=== PATIENT | female | born 1935 | race Caucasian/White ===

== ENCOUNTER → 2020-09-24 | Outpatient (CLI) | payer MEDICARE ==
--- NOTE | 2020-09-24 19:03 | REP ---
INDICATION: ESSENTIAL (PRIMARY) HYPERTENSION. COMPARISON: No comparison study. TECHNIQUE: Two views.. FINDINGS: The lungs are well inflated and free of infiltrate. The pleural angles are sharp. The heart size is normal. Pulmonary vasculature is not increased. No significant bony abnormality is seen. The thoracic aorta is tortuous. IMPRESSION: No active disease.. <Electronically signed by Pool Smith > 09/24/20 [id number]
== END ==
LOC: M RAD 17:20
PROVIDERS: ATTEND Internal Medicine Cardiovascular Disease
DX: I10 Essential (primary) hypertension (principal)

== ENCOUNTER → 2023-10-13 | Outpatient (CLI) | payer MEDICARE ==
[~2023-10-13] MED LIST: CITA10TA7 PO; ISOVUE-370 76% 100ML VIAL As Ordered ONE; LATA0.0015 OU; LEVO50TA5 PO; LEVO75TA4 PO; LISI2.5T9 PO; ROPI1TAB73 PO; TIZA4CAP6 PO
== END ==
LOC: M RAD 09:24
PROVIDERS: ATTEND Registered Nurse
DX: M16.11 Unilateral primary osteoarthritis, right hip (principal)
CPT/HCPCS: 73502; Q9967

== ENCOUNTER → 2024-06-07 | Outpatient (CLI) | payer MEDICARE ==
[~2024-06-07] MED LIST changes: +FAMO1TAB11; -ISOVUE-370 76% 100ML VIAL As Ordered ONE; +QUET1TAB17; +TIZA4CAP3 PO; -TIZA4CAP6 PO
[2024-06-07 17:46] LABS: BASO % 0.2 % (0.0-1.0); EOS % 0.6 % (0.0-3.0); HEMOGLOBIN 12.5 g/dl (12.0-15.5); LYMPH # 1.7 10^3/uL (1.5-5.0); LYMPH % 35.8 % (24.0-44.0); MEAN CORPUSCULAR HEMOGLOBIN 29.8 pg (27.0-33.0); MEAN CORPUSCULAR HGB CONC 32.9 g/dl (32.0-36.5); MEAN CORPUSCULAR VOLUME 90.7 fl (80.0-96.0); MONO # 0.4 10^3/uL (0.0-0.8); MONO % 8.8 % (2.0-8.0); NEUTROPHILS # 2.5 10^3/uL (1.5-8.5); NEUTROPHILS % 54.2 % (36.0-66.0); PLATELET COUNT, AUTOMATED 106 10^3/uL (150-450); RED BLOOD COUNT 4.19 10^6/uL (4.00-5.40); WHITE BLOOD COUNT 4.7 10^3/uL (4.0-10.0)
[2024-06-07 18:11] LABS: ALBUMIN 3.9 G/DL (3.2-5.2); ALKALINE PHOSPHATASE 74 U/L (46-116); ALT/SGPT < 9 U/L (7.0-40); AST/SGOT 11 U/L (<34); BILIRUBIN,TOTAL 0.6 MG/DL (0.3-1.2); BLOOD UREA NITROGEN 17 MG/DL (9-23); CALCIUM LEVEL 9.3 MG/DL (8.3-10.6); CARBON DIOXIDE LEVEL 31 MMOL/L (20-31); CHLORIDE LEVEL 108 MMOL/L (98-107); CREATININE FOR GFR 0.98 MG/DL (0.55-1.30); GLOMERULAR FILTRATION RATE 57.2 (>32); GLUCOSE, FASTING 79 MG/DL (74-106); POTASSIUM SERUM 3.9 MMOL/L (3.5-5.1); SODIUM LEVEL 143 MMOL/L (136-145); TOTAL PROTEIN 7.1 G/DL (5.7-8.2)
[2024-06-11 13:38] LABS: FREE KAPPA LIGHT CHAINS SERUM 29.5 mg/L (3.3-19.4); FREE LAMBDA LIGHT CHAINS SERUM 24.4 mg/L (5.7-26.3); KAPPA/LAMBDA RATIO SERUM 1.21 (0.26-1.65)
[2024-06-12 09:52] LABS: ALBUMIN SO 4.3 g/dL (3.8-4.8); ALPHA 1 GLOBULINS SO 0.3 g/dL (0.2-0.3); ALPHA 2 GLOBULINS SO 0.7 g/dL (0.5-0.9); BETA 2 GLOBULIN SO 0.3 g/dL (0.2-0.5); BETA GLOBULIN SO 0.4 g/dL (0.4-0.6)
== END ==
LOC: M LAB 16:36
PROVIDERS: ATTEND Internal Medicine Medical Oncology
DX: D69.6 Thrombocytopenia, unspecified (principal)

== ENCOUNTER → 2024-06-29 | Outpatient (CLI) | payer MEDICARE | LOC: M EKG 10:10 | PROVIDERS: ATTEND Physician Assistant | DX: I49.5 Sick sinus syndrome (principal) ==